=== PATIENT | male | born 1980 | race Caucasian/White ===

== ENCOUNTER 2016-11-12 09:19 | Emergency (ER) | payer OTHER ==
[~2016-11-12] VITALS: Wt 105.0 kg
[~2016-11-12 09:19] MED LIST: AMO500 PO; DENIES MEDS; IBUP-1542 PO
[2016-11-12] MEDS ORDERED: OFLO5DRO7 LEFT EAR (09:48)
[2016-11-12] MEDS ORDERED: NAPR-260 PO (09:48)
[2016-11-12] MEDS ORDERED: AMOX1TAB10 PO (09:48)
--- NOTE | 2016-11-12 09:53 | ERD ---
ER Documentation Chief Complaint Date/Time DATE: 11/12/16 TIME: 09:50 Chief Complaint PAIN ON LEFT SIDE OF FACE, HEAD, LEFT EAR, ONSET 3 DAYS HPI 36-year-old male otherwise healthy complains of left-sided ear pain with headache and facial pain for the past 2-3 days. He describes as achy, and there is inner ear pain, outer ear pain and extends to the back of his neck. Pain is worse when he chews or swallows. He has no hearing decrease from this. No vertigo or fevers or chills. No neck stiffness, no rashes. Denies URI symptoms. ROS All systems reviewed and are negative except as per history of present illness. Medications Home Meds Active Scripts Naproxen* (Naprosyn*) 500 Mg Tablet, 500 MG PO BID Y for PAIN AND/OR INFLAMMATION, #30 TAB Prov:CHE MCCORMICK PA-C 11/12/16 Ofloxacin Otic (Ofloxacin Otic) 5 Ml Drops, 5 DROP LEFT EAR BID for 10 Days, #1 BOTTLE Prov:CHE MCCORMICK PA-C 11/12/16 Amoxicillin/Potassium Clav (Amox-Clav 875-125 mg Tablet) 875-125 mg Tab, 1 TAB PO BID for 7 Days, #14 TAB Prov:CHE MCCORMICK PA-C 11/12/16 Amoxicillin* (Amoxicillin*) 500 Mg Cap, 500 MG PO TID for 7 Days, CAP Prov:CHE MCCORMICK PA-C 12/20/15 Ibuprofen* (Motrin*) 600 Mg Tab, 600 MG PO Q6, #30 TAB Prov:CHE MCCORMICK PA-C 12/20/15 Reported Medications [Denies Meds] No Conflict Check 12/21/12 [None] No Conflict Check 01/29/10 Allergies Allergies: Coded Allergies: No Known Allergies (Verified Allergy, Mild, 12/20/15) PMhx/Soc Medical and Surgical Hx: pt denies Medical Hx History of Surgery: No Anesthesia Reaction: No Hx Neurological Disorder: No Hx Respiratory Disorders: No Hx Cardiac Disorders: Yes (HTN) Hx Psychiatric Problems: No Hx Miscellaneous Medical Probl: No Hx Alcohol Use: Yes (DRINK BEER EVERY NIGHT) Hx Substance Use: Yes (MARIJUANA) Hx Tobacco Use: No Smoking Status: Never smoker Physical Exam Vitals Vital Signs Date Time Temp Pulse Resp B/P Pulse Ox O2 Delivery O2 Flow Rate FiO2 11/12/16 09:23 98.7 98 17 138/80 98 Physical Exam General: Well-developed, well-nourished. The patient appears in no acute distress. HEENT: Head is normocephalic, atraumatic. No scleral icterus. Left scalp tenderness in the temporal region, no tenderness with pulling of the tragus or to palpation over the pinna. There is erythema to the ear canal, as well as the tympanic membrane, there is no otorrhea or discharge or tympanic membrane perforation. There is no mastoid tenderness. There is postauricular lymphadenopathy. No rashes on the scalp. No temporal artery tenderness. Neck: Supple. Nontender. No meningismus. Lungs: Clear to auscultation. Normal air movement. Heart: Regular rate and rhythm. S1 and S2 are normal. No murmurs, gallops, or rubs. Abdomen: Nondistended. Extremities: No clubbing or cyanosis. Moving extremities x 4. No weakness. Neurologic: Alert and oriented 3. No focal deficits. Normal speech and gait. Skin: Normal turgor. No rash or lesions. Procedures/MDM 36-year-old male comes emergency room for left otitis media, otitis externa. There are no systemic findings, meningitis or deep space infection. Mastoiditis is unlikely, he has no tenderness when palpated over the mastoid processes. He does have an erythematous ear canal as well as the tympanic membrane and will be treated for both otitis externa and otitis media. He was given strict ER return precautions and was asked to recheck with his primary care doctor in 1-2 days. Departure Diagnosis: Primary Impression: Otitis media, left Additional Impression: Otitis externa, left Condition: Good Patient Instructions: Otitis Media, Abx Tx (Adult), External Ear Infection ( Adult) Additional Instructions: Call your primary care doctor TOMORROW for an appointment during the next 1-2 days.See the doctor sooner or return here if your condition worsens before your appointment time. CHE MCCROMICK PA-C Nov 12, 2016 09:52
== END 2016-11-12 10:01 | disposition home or self-care (01) ==
LOC: FTE 09:19
DX: H66.92 Otitis media, unspecified, left ear (principal); H60.92 Unspecified otitis externa, left ear; I10 Essential (primary) hypertension
CPT/HCPCS: 99284

== ENCOUNTER 2017-01-08 07:57 | Emergency (ER) | payer OTHER ==
[~2017-01-08] VITALS: Wt 109.1 kg
[~2017-01-08 07:57] MED LIST changes: +AMOX1TAB10 PO; +NAPR-260 PO; +OFLO5DRO7 LEFT EAR
[2017-01-08] MEDS ORDERED: KETOROLAC 30 MG INJ IM STA (08:13)
--- NOTE | 2017-01-08 08:27 | ERD ---
ER Documentation Chief Complaint Date/Time DATE: 01/08/17 TIME: 08:23 Chief Complaint back pain HPI Is a 36-year-old male who presents emergency department today complaining of back pain that started yesterday when he out of his truck. 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 States he has had back pain in the past but the medication they gave him did not help with his pain. States he is taking ibuprofen in the past but it does not work. States that he has had back pain before and he is unsure what is wrong with him but "might have a pinched nerve or something". States he has pain down his right leg. Denies any fevers or chills, dysuria, loss of bowel or bladder control. ROS All systems reviewed and are negative except as per history of present illness. Medications Home Meds Active Scripts Prednisone* (Prednisone*) 20 Mg Tab, 40 MG PO DAILY for 4 Days, TAB Prov:AMBER ALAS PA-C 01/08/17 Naproxen* (Naprosyn*) 500 Mg Tablet, 500 MG PO BID Y for PAIN AND/OR INFLAMMATION, #30 TAB Prov:AMBER ALAS PA-C 01/08/17 Cyclobenzaprine Hcl* (Cyclobenzaprine Hcl*) 10 Mg Tablet, 10 MG PO QHS, #7 TAB Prov:AMBER ALAS PA-C 01/08/17 Hydrocodone/Acetaminophen (Joiner 5-325 Tablet) 1 Each Tablet, 1 TAB PO Q6H Y for PAIN, #10 TAB Prov:AMBER ALAS PA-C 01/08/17 Naproxen* (Naprosyn*) 500 Mg Tablet, 500 MG PO BID Y for PAIN AND/OR INFLAMMATION, #30 TAB Prov:CHE MCCORMICK PA-C 11/12/16 Ofloxacin Otic (Ofloxacin Otic) 5 Ml Drops, 5 DROP LEFT EAR BID for 10 Days, #1 BOTTLE Prov:CHE MCCORMICK PA-C 11/12/16 Amoxicillin/Potassium Clav (Amox-Clav 875-125 mg Tablet) 875-125 mg Tab, 1 TAB PO BID for 7 Days, #14 TAB Prov:CHE MCCORMICK PA-C 11/12/16 Amoxicillin* (Amoxicillin*) 500 Mg Cap, 500 MG PO TID for 7 Days, CAP Prov:CHE MCCORMICK PA-C 12/20/15 Ibuprofen* (Motrin*) 600 Mg Tab, 600 MG PO Q6, #30 TAB Prov:CHE MCCORMICK PA-C 12/20/15 Reported Medications [Denies Meds] No Conflict Check 12/21/12 [None] No Conflict Check 01/29/10 Allergies Allergies: Coded Allergies: No Known Allergies (Verified Allergy, Mild, 11/12/16) PMhx/Soc History of Surgery: No Anesthesia Reaction: No Hx Neurological Disorder: No Hx Respiratory Disorders: No Hx Cardiac Disorders: Yes (HTN) Hx Psychiatric Problems: No Hx Miscellaneous Medical Probl: No Hx Alcohol Use: Yes (DRINK BEER EVERY NIGHT) Hx Substance Use: Yes (MARIJUANA) Hx Tobacco Use: No Physical Exam Vitals Vital Signs Date Time Temp Pulse Resp B/P Pulse Ox O2 Delivery O2 Flow Rate FiO2 01/08/17 07:58 97.4 77 20 146/99 97 Physical Exam Const: No acute distress Head: Atraumatic Eyes: Normal Conjunctiva ENT: Normal External Ears, Nose and Mouth. Neck: Full range of motion..~ No meningismus. Resp: Clear to auscultation bilaterally Cardio: Regular rate and rhythm, no murmurs Abd: Soft, non tender, non distended. Normal bowel sounds Skin: No petechiae or rashes Back: Lumbar spine midline tenderness mild bilateral paraspinal tenderness. Pain with forward flexion. Positive straight leg raise. Pulses 2+. Distal neurovascularly intact. Neur: Awake and alert Psych: Normal Mood and Affect Results 24 hrs Current Medications Medications (Trade) Dose Ordered Sig/[place] Route PRN Reason Start Time Stop Time Status Last Admin Dose Admin Ketorolac Tromethamine (Toradol) 30 mg ONCE STAT IM 01/08/17 08:13 01/08/17 08:14 DC 01/08/17 08:30 Prednisone (Prednisone) 60 mg ONCE ONCE PO 01/08/17 08:30 01/08/17 08:31 DC 01/08/17 08:29 Procedures/MDM This a 36-year-old male presents the emergency department today complaining of low back pain for the past 2 days. Patient does have a previous history of back pain appears to have been seen by Dr. germain in the past. Do not feel the patient requires imaging at this time as he is already been evaluated for his back. Patient symptoms at this time is consistent with acute on chronic back pain with some radicular symptoms and sciatica Low suspicion for acute fracture or dislocation. Patient is afebrile and otherwise well-appearing. They have no loss of bowel or bladder control. Low suspicion for cauda equina or abscess. Patient was given Toradol and prednisone here in the emergency department and pain improved. Patient will be given a prescription for short course of Joiner, Naprosyn, Flexeril and prednisone At this time the patient is stable for discharge and outpatient management. Patient should follow up with their PCP in the next 1-2 days. They may return to the emergency department sooner for any persistent or worsening of symptoms. Patient understood and agreed with the plan. Departure Diagnosis: Primary Impression: Back pain Back pain location: low back pain Chronicity: unspecified Back pain laterality: midline Sciatica presence: with sciatica Sciatica laterality: sciatica of right side Qualified Code: M54.41 - Midline low back pain with right-sided sciatica, unspecified chronicity Condition: AMBER Freire PA-C Jan 08, 2017 08:26
[2017-01-08] MEDS ORDERED: predniSONE 20 MG TAB PO ONE (08:30)
[2017-01-08] MEDS ORDERED: HYDR-906 PO (08:31)
[2017-01-08] MEDS ORDERED: NAPR-260 PO (08:31)
[2017-01-08] MEDS ORDERED: CYCL-319 PO (08:31)
[2017-01-08] MEDS ORDERED: PRED20TA PO (08:32)
== END 2017-01-08 08:58 | disposition home or self-care (01) ==
LOC: FTE 07:57
DX: M54.41 Lumbago with sciatica, right side (principal); I10 Essential (primary) hypertension
CPT/HCPCS: 96372; J1885; J7512; Z7502

== ENCOUNTER 2017-04-15 09:04 | Emergency (ER) | payer MEDICAID, OTHER ==
[~2017-04-15] VITALS: Ht 172.7 cm; Wt 107.9 kg
[~2017-04-15 09:04] MED LIST changes: -AMO500 PO; +AMOX500C2 PO; +CYCL-319 PO; +HYDR-906 PO; +PRED20TA PO
[2017-04-15 09:28] VITALS: Ht 172.7 cm; Wt 107.9 kg
[2017-04-15] MEDS ORDERED: CEPH-443 PO (09:47)
[2017-04-15] MEDS ORDERED: SULF1TAB31 PO (09:47)
--- NOTE | 2017-04-15 12:31 | ERD ---
ER Documentation Chief Complaint Chief Complaint left leg spider bite or abscess HPI 7-year-old male presents to the emergency department complaining of increased pain, redness and warmth to a spider bite that occurred 2 days ago. Patient denies any fevers. He denies taking any medications for this ROS All systems reviewed and are negative except as per history of present illness. Medications Home Meds Active Scripts Cephalexin* (Keflex*) 500 Mg Capsule, 500 MG PO QID for 10 Days, CAP Prov:CORNEL JAMISON PA-C 04/15/17 Sulfamethoxazole/Trimethoprim* (Bactrim Ds* Tablet) 1 Each Tablet, 1 TAB PO BID , #20 TAB Prov:CORNEL JAMISON PA-C 04/15/17 Prednisone* (Prednisone*) 20 Mg Tab, 40 MG PO DAILY for 4 Days, TAB Prov:AMBER ALAS PA-C 01/08/17 Naproxen* (Naprosyn*) 500 Mg Tablet, 500 MG PO BID Y for PAIN AND/OR INFLAMMATION, #30 TAB Prov:AMBER ALAS PA-C 01/08/17 Cyclobenzaprine Hcl* (Cyclobenzaprine Hcl*) 10 Mg Tablet, 10 MG PO QHS, #7 TAB Prov:AMBER ALAS PA-C 01/08/17 Hydrocodone/Acetaminophen ([place] 5-325 Tablet) 1 Each Tablet, 1 TAB PO Q6H Y for PAIN, #10 TAB Prov:AMBER ALAS PA-C 01/08/17 Naproxen* (Naprosyn*) 500 Mg Tablet, 500 MG PO BID Y for PAIN AND/OR INFLAMMATION, #30 TAB Prov:CHE MCCORMICK PA-C 11/12/16 Ofloxacin Otic (Ofloxacin Otic) 5 Ml Drops, 5 DROP LEFT EAR BID for 10 Days, #1 BOTTLE Prov:CHE MCCORMICK PA-C 11/12/16 Amoxicillin/Potassium Clav (Amox-Clav 875-125 mg Tablet) 875-125 mg Tab, 1 TAB PO BID for 7 Days, #14 TAB Prov:CHE MCCORMICK PA-C 11/12/16 Amoxicillin* (Amoxicillin*) 500 Mg Cap, 500 MG PO TID for 7 Days, CAP Prov:CHE MCCORMICK PA-C 12/20/15 Ibuprofen* (Motrin*) 600 Mg Tab, 600 MG PO Q6, #30 TAB Prov:CHE MCCORMICK PA-C 12/20/15 Reported Medications [Denies Meds] No Conflict Check 12/21/12 [None] No Conflict Check 01/29/10 Allergies Allergies: Coded Allergies: No Known Allergies (Verified Allergy, Mild, 04/15/17) PMhx/Soc Medical and Surgical Hx: pt denies Surgical Hx History of Surgery: No Anesthesia Reaction: No Hx Neurological Disorder: No Hx Respiratory Disorders: No Hx Cardiac Disorders: Yes (HTN) Hx Psychiatric Problems: No Hx Miscellaneous Medical Probl: No Hx Alcohol Use: Yes (DRINK BEER EVERY NIGHT) Hx Substance Use: Yes (MARIJUANA) Hx Tobacco Use: No Smoking Status: Never smoker Physical Exam Vitals Vital Signs Date Time Temp Pulse Resp B/P Pulse Ox O2 Delivery O2 Flow Rate FiO2 04/15/17 09:28 98.0 88 18 145/88 99 Physical Exam General: WD/WN, in no apparent distress, non-toxic appearing HENT: NC/AT Eyes: Conjunctiva normal Neck: Supple Pulm: Clear to auscultation, normal labored breathing; no wheezing/rales/ rhonchi heard CV: Good capillary refill GI: Non-distended, no guarding Back: No masses Ext: No clubbing, cyanosis, or edema Neuro: Moves on all fours Skin: Erythematous, indurated warm patch on the left posterior thigh Psych: Normal mood Procedures/MDM Is a 37-year-old male presenting to the emergency department with cellulitic changes to left posterior thigh likely due to a spider bite that occurred 2 days prior to being seen. There is no evidence of sepsis or lymphangitis, patient is appropriate to be discharged home as an outpatient with outpatient antibiotics Keflex Bactrim. Discussed the follow-up with his primary care physician in 2 days for further management. Understands and agrees with plan Departure Diagnosis: Primary Impression: Cellulitis Condition: Stable Patient Instructions: Cellulitis CORNEL JAMISON PA-C Apr 15, 2017 12:31
== END 2017-04-15 10:02 | disposition home or self-care (01) ==
LOC: FTE 09:04
DX: L03.116 Cellulitis of left lower limb (principal); I10 Essential (primary) hypertension
CPT/HCPCS: 99284

== ENCOUNTER 2017-10-17 06:30 | Emergency (ER) | END 2017-10-17 09:54 | disposition home or self-care (01) ==

== ENCOUNTER 2018-09-08 12:32 | Emergency (ER) | payer OTHER ==
[~2018-09-08] VITALS: Wt 108.4 kg
[~2018-09-08 12:32] MED LIST changes: +CEPH-443 PO; -CYCL-319 PO; +CYCL10TA7 PO; +HYDR-4011 PO; -HYDR-906 PO; -NAPR-260 PO; +NAPR-985 PO; +PANT40TA3 PO; +SULF1TAB31 PO
[2018-09-08 12:39] VITALS: BP 141/78; PULSE 89; RESP 18
[2018-09-08] MEDS ORDERED: NPH10OT BOTH EARS (13:53)
[2018-09-08] MEDS ORDERED: PSEU-79 PO (13:53)
--- NOTE | 2018-09-08 14:15 | ERD ---
ER Documentation Chief Complaint Chief Complaint L ear pain x2d; 'worse when drinking fluid' HPI 38-year-old male presenting with pain to his left ear times 2 days. He states that there is pain with swallowing. Denies any nasal congestion. Denies any fevers. Has not taken medications for symptoms. Denies other medical problems. NKDA. Surgical history denies. Social history denies ROS All systems reviewed and are negative except as per history of present illness. Medications Home Meds Active Scripts Pseudoephedrine Hcl* (Suphedrin*) 30 Mg Tablet, 30 MG PO Q6 PRN for CONGESTION, #30 TAB Prov:JAKY BANG PA-C 09/08/18 Neomycin/Polymyxin/Hydrocort* (Cortisporin* Otic) 10 Ml Susp, 4 DROP BOTH EARS QID for 7 Days, EA Prov:JAKY BANG PA-C 09/08/18 Pantoprazole* (Protonix*) 40 Mg Tablet.dr, 40 MG PO DAILY, #20 TAB Prov:FLORINA GODFREY MD 10/17/17 Cephalexin* (Keflex*) 500 Mg Capsule, 500 MG PO QID for 10 Days, CAP Prov:CORNEL JAMISON PA-C 04/15/17 Sulfamethoxazole/Trimethoprim* (Bactrim Ds* Tablet) 1 Each Tablet, 1 TAB PO BID, #20 TAB Prov:CORNEL JAMISONC 04/15/17 Prednisone* (Prednisone*) 20 Mg Tab, 40 MG PO DAILY for 4 Days, TAB Prov:AMBER ALAS PA-C 01/08/17 Naproxen* (Naprosyn*) 500 Mg Tablet, 500 MG PO BID PRN for PAIN AND/OR INFLAMMATION, #30 TAB Prov:AMBER ALAS PA-C 01/08/17 Cyclobenzaprine Hcl* (Cyclobenzaprine Hcl*) 10 Mg Tablet, 10 MG PO QHS, #7 TAB Prov:AMBER ALASC 01/08/17 Hydrocodone/Acetaminophen ([place] 5-325 Tablet) 1 Each Tablet, 1 TAB PO Q6H PRN for PAIN, #10 TAB Prov:AMBER ALASC 01/08/17 Naproxen* (Naprosyn*) 500 Mg Tablet, 500 MG PO BID PRN for PAIN AND/OR INFLAMMATION, #30 TAB Prov:CHE MCCORMICK PA-C 11/12/16 Ofloxacin Otic (Ofloxacin Otic) 5 Ml Drops, 5 DROP LEFT EAR BID for 10 Days, #1 BOTTLE Prov:CHE MCCORMICK PA-C 11/12/16 Amoxicillin/Potassium Clav (Amox-Clav 875-125 mg Tablet) 875-125 mg Tab, 1 TAB PO BID for 7 Days, #14 TAB Prov:CHE MCCORMICK PA-C 11/12/16 Amoxicillin* (Amoxicillin*) 500 Mg Cap, 500 MG PO TID for 7 Days, CAP Prov:CHE MCCORMICK PA-C 12/20/15 Ibuprofen* (Motrin*) 600 Mg Tab, 600 MG PO Q6, #30 TAB Prov:CHE MCCORMICK PA-C 12/20/15 Reported Medications [Denies Meds] No Conflict Check 12/21/12 [None] No Conflict Check 01/29/10 Allergies Allergies: Coded Allergies: No Known Allergies (Verified Allergy, Mild, 04/15/17) PMhx/Soc History of Surgery: No Anesthesia Reaction: No Hx Neurological Disorder: No Hx Respiratory Disorders: No Hx Cardiac Disorders: Yes (HTN(NOT TAKING MEDS)) Hx Psychiatric Problems: No Hx Miscellaneous Medical Probl: Yes (CHRONIC ALCOHOLIC) Hx Alcohol Use: Yes (DRINK BEER EVERY NIGHT) Hx Substance Use: Yes (MARIJUANA) Hx Tobacco Use: No Smoking Status: Never smoker FmHx Family History: No diabetes, No coronary disease, No other Physical Exam Vitals Vital Signs Date Temp Pulse Resp B/P (MAP) Pulse Ox O2 O2 Flow FiO2 Time Delivery Rate 09/08/18 99.2 89 18 141/78 99 12:39 (99) Physical Exam GENERAL: The patient is well-appearing, well-nourished, in no acute distress HEENT: Atraumatic. Conjunctivae are pink. Pupils equal, round, and reactive to light. There is no scleral icterus. Tympanic membranes clear bilaterally. Erythema noted to the left external ear canal with positive tragal tenderness. No mastoid tenderness. Oropharynx clear. NECK: C-spine is soft and supple. There is no meningismus. There is no cervical lymphadenopathy. CHEST: Clear to auscultation bilaterally. There are no rales, wheezes or rhonchi. HEART: Regular rate and rhythm. No murmurs, clicks, rubs or gallops. Procedures/MDM MDM: 38-year-old male presenting with erythema to the external ear canal. Patient has findings consistent with otitis externa and I will treat with otic drops. Patient will also be discharged with decongestants. Patient is told symptoms change or worsen to return immediately to the ER. All questions answered at discharge Departure Diagnosis: Primary Impression: Right ear pain Condition: Stable Patient Instructions: External Ear Infection (Adult) Referrals: [facility] YOU HAVE RECEIVED A MEDICAL SCREENING EXAM AND THE RESULTS INDICATE THAT YOU DO NOT HAVE A CONDITION THAT REQUIRES URGENT TREATMENT IN THE EMERGENCY DEPARTMENT. FURTHER EVALUATION AND TREATMENT OF YOUR CONDITION CAN WAIT UNTIL YOU ARE SEEN IN YOUR DOCTORS OFFICE WITHIN THE NEXT 1-2 DAYS. IT IS YOUR RESPONSIBILITY TO MAKE AN APPOINTMENT FOR FOLOW-UP CARE. IF YOU HAVE A PRIMARY DOCTOR --you should call your primary doctor and schedule an appointment IF YOU DO NOT HAVE A PRIMARY DOCTOR YOU CAN CALL OUR PHYSICIAN REFERRAL HOTLINE AT IF YOU CAN NOT AFFORD TO SEE A PHYSICIAN YOU CAN CHOSE FROM THE FOLLOWING [facility] [address]. [facility] [address] [facility] [facility] [address] [facility] [facility] [address] [facility]. [facility] [address] [facility]. [facility]. [address] Additional Instructions: FOLLOW UP WITH YOUR PRIMARY CARE PHYSICIAN TOMORROW.Return to this facility if you are not improving as expected. JAKY BANG PA-C Sep 08, 2018 14:15
== END 2018-09-08 16:00 | disposition home or self-care (01) ==
LOC: FTE 12:32
DX: H92.01 Otalgia, right ear (principal); I10 Essential (primary) hypertension
CPT/HCPCS: 99282

== ENCOUNTER 2018-10-13 14:23 | Emergency (ER) | payer OTHER ==
[~2018-10-13] VITALS: Wt 120.0 kg
[~2018-10-13 14:23] MED LIST changes: +NPH10OT BOTH EARS; +PSEU-79 PO
[2018-10-13 14:29] VITALS: BP 140/91; PULSE 99; RESP 18
[2018-10-13] MEDS ORDERED: IBUPROFEN 600 MG TAB PO ONE (16:30)
[2018-10-13] MEDS ORDERED: IBUP-1542 PO (17:19)
--- NOTE | 2018-10-13 17:21 | ERD ---
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 He has no restricted range of motion weakness mild restricted range of motion due to pain. He denies any bleeding or laceration. Denies any head injury, neck injury, additional complaints. ROS All systems reviewed and are negative except as per history of present illness. Medications Home Meds Active Scripts Ibuprofen* (Motrin*) 600 Mg Tab, 600 MG PO Q6, #15 TAB Prov:STERLING AMARO MD 10/13/18 Pseudoephedrine Hcl* (Suphedrin*) 30 Mg Tablet, 30 MG PO Q6 PRN for CONGESTION, #30 TAB Prov:JAKY BANG PA-C 09/08/18 Neomycin/Polymyxin/Hydrocort* (Cortisporin* Otic) 10 Ml Susp, 4 DROP BOTH EARS QID for 7 Days, EA Prov:JAKY BANG PA-C 09/08/18 Pantoprazole* (Protonix*) 40 Mg Tablet.dr, 40 MG PO DAILY, #20 TAB Prov:FLORINA GODFREY MD 10/17/17 Cephalexin* (Keflex*) 500 Mg Capsule, 500 MG PO QID for 10 Days, CAP Prov:CORNEL JAMISON PA-C 04/15/17 Sulfamethoxazole/Trimethoprim* (Bactrim Ds* Tablet) 1 Each Tablet, 1 TAB PO BID, #20 TAB Prov:CORNEL JAMISON PA-C 04/15/17 Prednisone* (Prednisone*) 20 Mg Tab, 40 MG PO DAILY for 4 Days, TAB Prov:AMBER ALAS PA-C 01/08/17 Naproxen* (Naprosyn*) 500 Mg Tablet, 500 MG PO BID PRN for PAIN AND/OR INFLAMMATION, #30 TAB Prov:AMBER ALAS PA-C 01/08/17 Cyclobenzaprine Hcl* (Cyclobenzaprine Hcl*) 10 Mg Tablet, 10 MG PO QHS, #7 TAB Prov:AMBER ALAS PA-C 01/08/17 Hydrocodone/Acetaminophen ([place] 5-325 Tablet) 1 Each Tablet, 1 TAB PO Q6H PRN for PAIN, #10 TAB Prov:BISHOPAMBERJoshua Sheth PA-C 01/08/17 Naproxen* (Naprosyn*) 500 Mg Tablet, 500 MG PO BID PRN for PAIN AND/OR INFLAMMATION, #30 TAB Prov:CHE MCCORMICK PA-C 11/12/16 Ofloxacin Otic (Ofloxacin Otic) 5 Ml Drops, 5 DROP LEFT EAR BID for 10 Days, #1 BOTTLE Prov:CHE MCCORMICK PA-C 11/12/16 Amoxicillin/Potassium Clav (Amox-Clav 875-125 mg Tablet) 875-125 mg Tab, 1 TAB PO BID for 7 Days, #14 TAB Prov:CHE MCCORMICK PA-C 11/12/16 Amoxicillin* (Amoxicillin*) 500 Mg Cap, 500 MG PO TID for 7 Days, CAP Prov:CHE MCCORMICK PA-C 12/20/15 Ibuprofen* (Motrin*) 600 Mg Tab, 600 MG PO Q6, #30 TAB Prov:CHE MCCORMICK PA-C 12/20/15 Reported Medications [Denies Meds] No Conflict Check 12/21/12 [None] No Conflict Check 01/29/10 Allergies Allergies: Coded Allergies: No Known Allergies (Verified Allergy, Mild, 04/15/17) PMhx/Soc History of Surgery: No Anesthesia Reaction: No Hx Neurological Disorder: No Hx Respiratory Disorders: No Hx Cardiac Disorders: Yes (HTN(NOT TAKING MEDS)) Hx Psychiatric Problems: No Hx Miscellaneous Medical Probl: Yes (CHRONIC ALCOHOLIC) Hx Alcohol Use: Yes (DRINK BEER EVERY NIGHT) Hx Substance Use: Yes (MARIJUANA) Hx Tobacco Use: No FmHx Family History: No diabetes, No coronary disease, No other Physical Exam Vitals Vital Signs Date Temp Pulse Resp B/P (MAP) Pulse Ox O2 O2 Flow FiO2 Time Delivery Rate 10/13/18 98.0 99 18 140/91 99 14:29 (107) Physical Exam Const: No acute distress Head: Atraumatic Eyes: Normal Conjunctiva ENT: Normal External Ears, Nose and Mouth. Neck: Full range of motion. No meningismus. Resp: Clear to auscultation bilaterally Cardio: Regular rate and rhythm, no murmurs Abd: Soft, non tender, non distended. Normal bowel sounds Skin: No petechiae or rashes Back: No midline or flank tenderness Ext: No cyanosis, or edema. Generalized tenderness around the left ankle without significant deformities. No appreciable metatarsal or foot tenderness. No knee, calf, tib-fib tenderness. Neur: Awake and alert Psych: Normal Mood and Affect Results 24 hrs Current Medications Medications Dose Sig/[place] Start Time Status Last (Trade) Ordered Route PRN Stop Time Admin Dose Reason Admin Ibuprofen 600 mg ONCE ONCE 10/13/18 DC 10/13/18 (Motrin) PO 16:30 16:22 10/13/18 16:31 Procedures/MDM X-ray left ankle 3V Interpreted by me: Bones: No fracture Joints: No dislocation Foreign Body: None \impression-normal left ankle x-ray Signs and symptoms left ankle sprain without signs of fracture, dislocation, ischemia, deficits infection. Patient was placed in a left ankle Aircast and was neurovascular intact after the Aircast. Also given crutches with crutch training. Was discharged home with recommendations for ice, elevation, and primary care follow-up and orthopedic evaluation for persistent pain despite conservative treatment. The patient was stable with no new complaints during the ER course. Clinically, there is no current evidence to suggest meningitis, sepsis, acute abdomen, pneumonia, stroke, acute coronary syndrome, pulmonary embolism, aortic dissection or any other emergent condition appearing to require further evaluation or hospitalization. Patient counseled regarding my diagnostic impression and care plan. Prior to discharge all questions answered. Pt agrees with treatment plan and understands strict return precautions. Pt is instructed to follow up with primary care provider within 24-48 hours. Precautionary instructions provided including instructions to return to the ER if not improving or for any worsening or changing symptoms or concerns. Disclaimer: Inadvertent spelling and grammatical errors are likely due to EHR/dictation software use and do not reflect on the overall quality of patient care. Also, please note that the electronic time recorded on this note does not necessarily reflect the actual time of the patient encounter. Departure Diagnosis: Primary Impression: Ankle abrasion Encounter type: initial encounter Laterality: left Qualified Codes: S90.512A - Abrasion, left ankle, initial encounter Condition: Stable Patient Instructions: Sprain, Ankle, With X-Ray Additional Instructions: X-ray read as normal. Ice and elevate at home. Recheck for redness, fevers, new or worsening symptoms. Likely sprain should resolve the next 1 to 2 weeks although recheck for new improvement in symptoms or worsening symptoms. TEEHEE,STERLING N. MD October 13, 2018 17:21
== END 2018-10-13 17:46 | disposition home or self-care (01) ==
LOC: FTE 14:23
DX: S90.512A Abrasion, left ankle, initial encounter (principal); I10 Essential (primary) hypertension; W18.40XA Slipping, tripping and stumbling without falling, unspecified, initial encounter; Y92.9 Unspecified place or not applicable
CPT/HCPCS: 73610; Z7502; Z7610